=== PATIENT | male | born 1995 | race Caucasian/White ===

== ENCOUNTER 2017-06-17 16:09 | Emergency (ER) | payer MEDICAID ==
[2017-06-17 16:18] VITALS: BP 133/84; PULSE 62; RESP 18; TEMP 98.6; O2SAT 97
--- NOTE | 2017-06-17 16:19 | EDPHY ---
H & P Stated Complaint: PAIN AT INNER CANTHUS OF R EYE X 4 DAYS Time Seen by Provider: 06/17/17 16:19 HPI/ROS: CHIEF COMPLAINT: Right eye pain HISTORY OF PRESENT ILLNESS: Patient presents to the ED with complaints of pain to his right medial canthus for the past 4 days. The patient denies wearing contact lenses. The patient denies any history of ocular trauma. The patient denies prior history of the symptoms. The patient has no complaints of blurry vision. The patient has no complaints of headache. He denies any focal neurologic symptoms. REVIEW OF SYSTEMS: A comprehensive 10 point review of systems is otherwise negative aside from elements mentioned in the history of present illness. Source: Patient Exam Limitations: No limitations - Personal History Current Tetanus/Diphtheria Vaccine: Yes - Medical/Surgical History Hx Asthma: No Hx Chronic Respiratory Disease: No Hx Diabetes: No Hx Cardiac Disease: No Hx Renal Disease: No Hx Cirrhosis: No Hx Alcoholism: No Hx HIV/AIDS: No Hx Splenectomy or Spleen Trauma: No Other PMH: SPINA BIFIDA - Social History Smoking Status: Current every day smoker - Physical Exam Exam: Visual Acuity: noted from Nurse's notes. Pupils: equal round and reactive to light EOMI Lids: no edema or swelling, mild tenderness to palpation at the right medial canthus, no significant soft tissue swelling, no hordeolum noted Skin: Minimal erythema inferior to the right medial canthus Conjunctivae: not injected, no discharge Anterior chamber: normal, no hyphema or hypopyon Constitutional: Initial Vital Signs Temperature (C) 37 C 06/17/17 16:16 Heart Rate 62 06/17/17 16:16 Respiratory Rate 18 06/17/17 16:16 Blood Pressure 133/84 H 06/17/17 16:16 O2 Sat (%) 97 06/17/17 16:16 O2 Delivery Mode Room Air Allergies/Adverse Reactions: No Known Allergies Allergy (Unverified 06/17/17 16:16) Home Medications: Medication Instructions Recorded Erythromycin 0.5% 1 rishabh RTEYE BID #1 opht.oint 06/17/17 Medical Decision Making ED Course/Re-evaluation: Patient presents to the ED with pain over his lacrimal duct medial canthus the right eye. There is minimal erythema. There is no obvious abscess or hordeolum. There is no clinical evidence of a significant periorbital or orbital cellulitis. The patient will be started on erythromycin ointment and advised to apply warm compresses to the right eye 4 times a day. The patient should follow up with our on-call museum archivist in the next 3-4 days for any unimproved symptoms. He should follow up sooner for worsening symptoms. Departure - Departure Disposition: Home, Routine, Self-Care Clinical Impression: Lacrimal duct infection Condition: Good Instructions: Blocked Tear Duct (ED) Additional Instructions: 1. Apply warm compresses to right eye 4 times a day. 2. Antibiotic ointment as directed twice daily for next week. 3. Please follow up with museum archivist you have been referred to for any symptoms which are unimproved after 3-4 days. Please follow up sooner for any worsening symptoms. Referrals: Yue Martin MD [Medical Doctor] - As per Instructions
[2017-06-17] MEDS ORDERED: PROPARACAINE 0.5% 15 ML OPHT DROP ONE (16:28)
[2017-06-17] MEDS ORDERED: FLUORESCEIN SODIUM 1 MG STRIP OP ONE (16:29)
== END 2017-06-17 16:35 | disposition home or self-care (01) ==
DX: H04.301 Unspecified dacryocystitis of right lacrimal passage (principal); F17.200 Nicotine dependence, unspecified, uncomplicated